=== PATIENT | male | born 1950 | race Hispanic/Latino ===

== ENCOUNTER → 2024-09-17 | Outpatient (CLI) | payer MEDICARE | END | disposition home or self-care (01) | LOC: SHCH 12:41 | PROVIDERS: ATTEND Student in an Organized Health Care Education/Training Program | DX: I73.9 Peripheral vascular disease, unspecified (principal); E78.5 Hyperlipidemia, unspecified; R06.09 Other forms of dyspnea; E11.9 Type 2 diabetes mellitus without complications; I11.9 Hypertensive heart disease without heart failure; M79.605 Pain in left leg; M79.604 Pain in right leg | CPT/HCPCS: 93925; 93970 ==